=== PATIENT | female | born 1975 | race Caucasian/White ===

== ENCOUNTER 2023-09-13 15:06 | Emergency (ER) | payer OTHER, SELFPAY ==
[2023-09-13 15:11] VITALS: BP 143/85; PULSE 76; RESP 17; TEMP 36.6; O2SAT 99; BMI 25.8
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
[2023-09-13] MEDS: KETOROLAC 30 MG/ML VIAL IM (16:33)
[2023-09-13 16:55] VITALS: BP 143/80; PULSE 78; RESP 18; O2SAT 98
== END 2023-09-13 16:56 | disposition home or self-care (01) ==
PROVIDERS: Emergency Provider Student in an Organized Health Care Education/Training Program
DX: S16.1XXA Strain of muscle, fascia and tendon at neck level, initial encounter (principal); M54.12 Radiculopathy, cervical region; R42 Dizziness and giddiness; M62.838 Other muscle spasm; V89.2XXA Person injured in unspecified motor-vehicle accident, traffic, initial encounter
CPT/HCPCS: 70450; 72125; 96372; 99284; J1885

== ENCOUNTER 2023-09-18 13:19 | Emergency (ER) | payer OTHER, SELFPAY ==
[2023-09-18 13:43] VITALS: BP 142/65; PULSE 81; RESP 16; TEMP 36.9; O2SAT 98; BMI 25.8
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
[2023-09-18 17:22] VITALS: BP 142/88; PULSE 84; RESP 16; O2SAT 97
== END 2023-09-18 17:23 | disposition home or self-care (01) ==
PROVIDERS: Emergency Provider Emergency Medicine
DX: M54.12 Radiculopathy, cervical region (principal)
CPT/HCPCS: 99281

== ENCOUNTER → 2023-10-19 12:23 | Outpatient (CLI) | payer OTHER, SELFPAY ==
--- NOTE | 2023-10-19 12:25 | DI.RAD.S_ITS ---
PROCEDURE: XR FOOT LT MIN 3V INDICATIONS: Popping sensation dorsal aspect of left foot TECHNIQUE: 3 views of the foot were acquired. COMPARISON: None. FINDINGS: Bones: No fractures or dislocations. No suspicious bony lesions. Hallux valgus. Soft tissues: No tibiotalar joint effusion. Achilles tendon appears normal. IMPRESSION: No acute bony abnormality. Hallux valgus. Dictated by: Pito Mcconnell M.D. on 10/19/2023 at 15:12 Approved by: Pito Mcconnell M.D. on 10/19/2023 at 15:13
--- NOTE | 2023-10-19 12:25 | DI.RAD.S_ITS ---
PROCEDURE: XR TIBIA FIBULA LT 2V INDICATIONS: Pain proximal fibula TECHNIQUE: 2 views of the tibia and fibula were acquired. COMPARISON: None. FINDINGS: Bones: No fractures or dislocations. No suspicious bony lesions. Soft tissues: No suspicious soft tissue calcifications or masses. IMPRESSION: No acute bony abnormality. Dictated by: Pito Mcconnell M.D. on 10/19/2023 at 15:13 Approved by: Pito Mcconnell M.D. on 10/19/2023 at 15:13
== END ==
PROVIDERS: Visit Provider Physician Assistant
DX: S96.912A Strain of unspecified muscle and tendon at ankle and foot level, left foot, initial encounter (principal); M20.12 Hallux valgus (acquired), left foot; X58.XXXA Exposure to other specified factors, initial encounter
CPT/HCPCS: 73590; 73630